=== PATIENT | female | born 1930 | race Caucasian/White ===

== ENCOUNTER 2018-06-24 12:05 | Inpatient (IN) | payer MEDICARE, BC ==
[~2018-06-24] VITALS: Ht 152.4 cm; Wt 61.2 kg
[2018-06-24] VITALS (14 sets, daily range): BP systolic 96–127; BP diastolic 53–82
[2018-06-24] MEDS ORDERED: ACETAMINOPHEN 650 MG SUPP.RECT RC ONE ×2 (12:15→12:21)
[2018-06-24] MEDS ORDERED: IV NORMAL SALINE 1000 ML BAG IV ONE (12:15)
[2018-06-24] MEDS ORDERED: ACET-2605 PO (12:25)
[2018-06-24] MEDS ORDERED: LOSA50TA39 PO (12:25)
[2018-06-24] MEDS ORDERED: CHOL200074 PO (12:25)
[2018-06-24] MEDS ORDERED: LEVO112T5 PO (12:25)
[2018-06-24] MEDS ORDERED: TRAM50TA2 PO (12:25)
[2018-06-24] MEDS ORDERED: OXYB5TAB PO (12:25)
[2018-06-24] MEDS ORDERED: ACET-2154 PO (12:25)
--- NOTE | 2018-06-24 12:30 | NUR ---
Pt arrived by ambulance via gurney.Pt appears lethargic.Respiration is labored.O2 at 15liters via NRB mask.Afib with RVR on monitor .Rate 170s-182.Seen,examined by .
[2018-06-24 12:35] LABS: *BILIRUBIN,URIN 1+ (NEGATIVE); *BLOOD, URINE 2+ (NEGATIVE); *CLARITY,URINE CLOUDY (CLEAR); *COLOR,URINE YELLOW (YELLOW); *KETONES,URINE 1+ (NEGATIVE); *UROBILINOGEN,URINE 0.2 E.U./dl (NORMAL); LEUKOCYTE ESTERASE ,URINE 2+ (NEGATIVE); NITRITE, URINE POSITIVE (NEGATIVE); PH,URINE 5.5 (5.0-8.0); UGLUCOSE NEGATIVE (NEGATIVE)
[2018-06-24 12:41] LABS: BASOPHILS % (AUTO) 0.1 % (0.0-2.0); HEMATOCRIT 42.5 % (31.2-41.9); HEMOGLOBIN 14.1 g/dL (10.9-14.3); LYMPHOCYTES # (AUTO) 0.6 K/uL (20.0-40.0); LYMPHOCYTES % (AUTO) 7.2 % (20.5-51.5); MEAN CORPUSCULAR HEMOGLOBIN 31.9 uug (24.7-32.8); MEAN CORPUSCULAR HGB CONC 33 g/dL (32.3-35.6); MEAN CORPUSCULAR VOLUME 96.1 fL (75.5-95.3); MONOCYTES # (AUTO) 0.4 K/uL (2.0-10.0); MONOCYTES % (AUTO) 4.7 % (0.0-11.0); NEUTROPHILS # (AUTO) 7.2 K/uL (1.8-8.9); PLATELET COUNT (AUTO) 189 K/uL (179-408); RED BLOOD CELL COUNT(AUTO) 4.42 MIL/uL (3.63-4.92); WHITE BLOOD COUNT (AUTO) 8.2 K/uL (3.8-11.8)
[2018-06-24] MEDS ORDERED: DILTIAZEM HCL 25 MG IV ONE (12:42)
[2018-06-24 12:44] LABS: CARBON DIOXIDE 19 mmol/L (21-32); CHLORIDE 112 mmol/L (98-107); CREATININE 1.5 mg/dL (0.6-1.3); GLUCOSE 150 mg/dL (74-106); POTASSIUM 3.6 mmol/L (3.5-5.1); UREA NITROGEN, BLOOD 54 mg/dL (7-18)
[2018-06-24] MEDS ORDERED: DILTIAZEM HCL IV 125 MG in IV DEXTROSE 5% 100 ML IV ONE (12:45)
[2018-06-24] MEDS ORDERED: DILTIAZEM HCL 25 MG IV IV ONE (12:45)
--- NOTE | 2018-06-24 12:50 | NUR ---
Cardizem 20 mg IVP given to pt per md order.Remains in Afib.
[2018-06-24 12:51] LABS: SQUAMOUS EPITHELIAL CELL,UR FEW /HPF (NONE SEEN)
[2018-06-24 12:52] LABS: BACTERIA,URINE MODERATE /HPF (NONE SEEN); URINE AMORPHOUS URATE MODERATE /HPF
[2018-06-24] MEDS ORDERED: VANCOMYCIN IV 1,000 MG in IV DEXTROSE 5% 250 ML IV ONE (13:00)
--- NOTE | 2018-06-24 13:00 | NUR ---
Cardized gtt started per protocol.
[2018-06-24 13:01] LABS: ALANINE AMINOTRANSFERASE 6 U/L (14-59); ALKALINE PHOSPHATASE 61 U/L (50-136); ASPARTATE AMINOTRANSFERASE 12 U/L (15-37); BILIRUBIN,DIRECT 0.4 mg/dL (0.0-0.2); BILIRUBIN,TOTAL 1.2 mg/dL (0.2-1.0); TOTAL PROTEIN, SERUM 6.8 g/dL (6.4-8.2)
[2018-06-24] MEDS ORDERED: FUROSEMIDE 20 MG/2 ML VIAL IV ONE (13:30)
[2018-06-24] MEDS ORDERED: FUROSEMIDE 20 MG/2 ML VIAL ONE (13:53)
--- NOTE | 2018-06-24 14:45 | NUR ---
ADMIT AN 87YO LADY FROM ER VIA GURNY WITH FEVER AND AFIB WITH RVR IN THE 120B/MIN. PT IS LETHARGIC AND SOMNOLENT, OPENS EYES TO CALL, BUR NON VERBAL. CARDIZEM DRIP RUNNING AT 10MG/HR OR 10ML/HR INFUSING WELL ON THE LEFT FA G20. COLOR IS GOOD AND SKIN IS WARM TO TOUCH. O2 4L BY MASK, [id number] IS 97%. LUNGS ARE DIMINISHED ALL OVER. TEMP IS 99.5 RECTALLY.
[2018-06-24] MEDS ORDERED: DILTIAZEM HCL IV 125 MG in IV DEXTROSE 5% 100 ML IV PRN ×4 (15:15)
--- NOTE | 2018-06-24 15:30 | NUR ---
SON AND DAUGHTER IN LAW AT THE BEDSIDE. SEEN AND EXAMINED BY DR MENG WITH NEW ORDERS.
[2018-06-24] MEDS ORDERED: MAGNESIUM HYDROXIDE 30 ML LIQUID UDC PO PRN (15:45)
[2018-06-24] MEDS ORDERED: ONDANSETRON 4 MG/2 ML VIAL IV PRN (15:45)
[2018-06-24] MEDS ORDERED: ACETAMINOPHEN 325 MG TABLET PO PRN (15:45)
[2018-06-24] MEDS ORDERED: BUMETANIDE INJ 4 MG in IV DEXTROSE 5% 24 ML IV ONE (16:00)
[2018-06-24] MEDS ORDERED: DIGOXIN 500 MCG/2 ML AMP IV SCH (16:00)
[2018-06-24] MEDS ORDERED: AMIODARONE HCL IV 150 MG in IV DEXTROSE 5% 100 ML IV ONE (16:45)
[2018-06-24] MEDS ORDERED: MEROPENEM 0.5 G in IV NORMAL SALINE 50 ML IV SCH (16:45)
[2018-06-24] MEDS ORDERED: IV 1/2NS 1000 ML 1,000 ML IV ONE (17:30)
[2018-06-24] MEDS: AMIODARONE HCL IV 900 MG in IV DEXTROSE 5% 482 ML IV PRN (17:30)
--- NOTE | 2018-06-24 17:30 | NUR ---
CARDIZEM IS D/CD. AND AMIODARONE 150MG IV BOLUS GIVEN ORDERED AND FOLLOWED BY AMIODARONE DRIP AT 1MG /HR OR 33.33ML/HR ORDERED.
--- NOTE | 2018-06-24 18:00 | NUR ---
MIDLINE IV ACCESS INSERTED BY SRINIVASA CARDOSO ON THE LEFT UPPER ARM G18.
--- NOTE | 2018-06-24 18:11 | NUR ---
PHARMACY CLINICAL NOTES ( VANCOMYCIN DOSING) S: 87 yo female with DX of sepsis due to UTI & PNA. treating with merrem and Vancomycin empirically. O: BUN/SCR 54/1.5, WBC 8.2, TEMP 102, DOSING WT 97 LBS A/P: Pt recieved Vancomycin 1 gm in ER @ 13:30. Due to advanced age and compromised renal fxn will dose Vanco by fall of level. Per calculation dose of 1gm q56h would yeild a peak of 49 and trough of 17. plan to order level on 06/26 ~ 1300(48hr post 1st dose) . Will monitor renal fxn and levels and adjust dose as necessary
[2018-06-24] MEDS: MEROPENEM 0.5 G in IV NORMAL SALINE 50 ML IV SCH (18:36)
--- NOTE | 2018-06-24 20:00 | NUR ---
Drowsy, readily opens eyes to voice and tactile stimuli. Very few incomprehensible words. Does not follow commands; has generalized body weakness. Monitor remains AFib/AFlutter with rate better controlled. Amiodarone drip in progress per protocol. Resp regular at rate 30's/min but does not appear in distress. O2 face mask 5L/min in use. Pt is a mouth breather; frequent oral care done. HOB up at all times. Aspiration precautions observed. Nursing comfort measures maintained at all times. Please see CCU flowsheet for full assessment and clinical data.
--- NOTE | 2018-06-24 21:00 | NUR ---
Attempted to give HS med with very little water. Noted to drool water out from mouth; will keep NPO including meds.
[2018-06-24] MEDS: OXYBUTYNIN XL 5 MG TABSR PO SCH (21:12)
[2018-06-25] VITALS (36 sets, daily range): BP systolic 96–127; BP diastolic 53–78
[2018-06-25 04:43] LABS: BASOPHILS % (AUTO) 0.1 % (0.0-2.0); HEMATOCRIT 40.9 % (31.2-41.9); HEMOGLOBIN 13.7 g/dL (10.9-14.3); LYMPHOCYTES # (AUTO) 0.2 K/uL (20.0-40.0); LYMPHOCYTES % (AUTO) 1.6 % (20.5-51.5); MEAN CORPUSCULAR HEMOGLOBIN 31.7 uug (24.7-32.8); MEAN CORPUSCULAR HGB CONC 33 g/dL (32.3-35.6); MEAN CORPUSCULAR VOLUME 94.7 fL (75.5-95.3); MONOCYTES # (AUTO) 0.2 K/uL (2.0-10.0); MONOCYTES % (AUTO) 1.7 % (0.0-11.0); NEUTROPHILS # (AUTO) 9.6 K/uL (1.8-8.9); NEUTROPHILS % (AUTO) 96.6 % (38.5-71.5); PLATELET COUNT (AUTO) 159 K/uL (179-408); RED BLOOD CELL COUNT(AUTO) 4.32 MIL/uL (3.63-4.92); WHITE BLOOD COUNT (AUTO) 9.9 K/uL (3.8-11.8)
[2018-06-25 04:59] LABS: CARBON DIOXIDE 23 mmol/L (21-32); CHLORIDE 109 mmol/L (98-107); CHOLESTEROL 110 mg/dL (<200); CREATININE 1.6 mg/dL (0.6-1.3); GLUCOSE 180 mg/dL (74-106); HDL CHOLESTEROL 49 mg/dL (40-60); MAGNESIUM 1.8 mg/dL (1.8-2.4); PHOSPHOROUS 2.3 mg/dL (2.5-4.9); POTASSIUM 3.6 mmol/L (3.5-5.1); TRIGLYCERIDES 93 MG/DL (30-150); UREA NITROGEN, BLOOD 55 mg/dL (7-18)
[2018-06-25 05:55] LABS: BAND % (MANUAL) 51 % (0-10); LYMPHOCYTES % (MANUAL) 1 % (20-40); MYELOCYTES % 1 % (0-0); NEUTROPHILS % (MANUAL) 47 % (42-75)
--- NOTE | 2018-06-25 06:00 | NUR ---
Fairly tolerated well AM care procedures. Stable night. Remains Af/AF with rate below 100/min. Please see CCU flowsheet for trends and clinical data.
[2018-06-25] MEDS: MEROPENEM 0.5 G in IV NORMAL SALINE 50 ML IV SCH ×2 (06:46→18:20)
[2018-06-25] MEDS: Z GUARD REMEDY PASTE 57 GM TUBE TOP PRN (06:47)
--- NOTE | 2018-06-25 07:30 | NUR ---
RECIEVED PT LYING IN BED, LETHARGIC, OPENS EYES TO NAME AND ABLE TO SQUEEZE MY HAND LIGHTLY. HR IS STILL ON ATRIAL FIBRILLATION BETWEEN 96-120B/MIN.
--- NOTE | 2018-06-25 07:40 | NUR ---
NOTED THAT LEFT BREAST AUGMENTATION IS VERY HARD TO TOUCH. IS AWARE. ALSO NOTIFIED SRINIVASA CPR INSTRUCTOR THAT PT'S TOES ARE PURPLISH. BUT HAS WEAK PULSES NOTED. NO ORDERS NOTED.
--- NOTE | 2018-06-25 08:00 | NUR ---
SNTHROID PO NOT GIVEN. PT IS VERY LETHARGIC AND UNABLE TO SWALLOW. RESPIATION IS LABORED AND SHALLOW. MD IS AWARE. PT IS ON O2 MASK AT 6L , SATURATING AT 97-100%. HOB UP 35DEGREES. LUNGS ARE DIMINISHED BILATERALLY. IVF 1/2 NS AT 75ML/HR INFUSING WELL RIGHT UPPER ARM. AMIODARONE DRIP IN PROGRESS AT 0.5MG/MIN INFUSING WELL. HR STILL ON AFIB BETWEEN 96-118B/MIN.VSS.
[2018-06-25] MEDS ORDERED: LOSARTAN POTASSIUM 50 MG TABLET PO SCH (09:00)
[2018-06-25] MEDS ORDERED: ACETAMINOPHEN 650 MG SUPP.RECT RC PRN (09:00)
[2018-06-25] MEDS ORDERED: NEUTRA PHOS PACKET PO ONE (09:15)
--- NOTE | 2018-06-25 09:54 | NUR ---
PT MEDICATED WITH TYLENOL 650MG AK FOR TEMP OF 100F ORDERED.
--- NOTE | 2018-06-25 10:08 | NUR ---
TF Recommendation: Recommend advance to hypocaloric, high-calorie tube feeding per cardiac care septic status. TF recommendations: Osmolite 1.2 40mL/hr x 20hrs provides 800 mL solution, 960 kcal, 44.4 g pro, 645 mL fluid Prostat BID provides 200 kcal, 30 g pro. Total at goal rate: 1160 kcal, 74 g pro, 645 mL fluid. This meets 100% of calorie range and 100% of protein range. - 150 mL water flushes q8hr, or per MD based on renal sufficiency. - Initiate at 10mL/hr, advance to goal rate as tolerated qhr. Addendum: 06/25/18 at [address] Amended: Links added.
[2018-06-25] MEDS ORDERED: IV D5 1/2 NS 1000 ML 1,000 ML IV SCH (10:15)
--- NOTE | 2018-06-25 10:15 | NUR ---
SEEN AND EXAMINED BY DR ANDREW NIEVES WITH NEW ORDERS AND DR ALEM REGALADO.
--- NOTE | 2018-06-25 10:30 | NUR ---
ABG DONE ORDERED AND RESULT INFORMED TO DR ANDREW NIEVES WITH NO ORDERS.
[2018-06-25 10:34] LABS: ABG BASE EXCESS -6.5 mmol/L; ABG HCO3 19.2 mmol/L; ABG PH 7.311 (7.350-7.450); ABG PO2 104.7 mmHg (75.0-100.0); ABG SITE LEFT RADIAL; ABG TOTAL HEMOGLOBIN 13.5 G/dL (12.0-16.0); COHb 1.4 % (0.5-1.5); MetHb 0.1 % (0.0-1.5); O2Hb 96.4 % (94.0-97.0); VENT MODE Mask - Simple 6L
--- NOTE | 2018-06-25 10:35 | NUR ---
SEEN AND EXAMINED BY DR MENG WITH NEW ORDERS.
--- NOTE | 2018-06-25 10:45 | NUR ---
NGT INSERTED LEFT NARES FR 16 ORDERED. PLACEMENT CHECKED BY AUSCULTATION AND CONFIRMATION BY PCXR. AWAITING FOR RESULT.
[2018-06-25] MEDS: OSMOLITE 1.2 CAL 1,000 ML LIQUID GT PRN (12:00)
[2018-06-25] MEDS: LEVOTHYROXINE SODIUM 112 MCG TABLET PO SCH (12:02)
[2018-06-25] MEDS: IV 1/2NS 1000 ML 1,000 ML IV SCH (12:03)
--- NOTE | 2018-06-25 12:04 | NUR ---
PHARMACY CLINICAL NOTES ( VANCOMYCIN DOSING) S: 87 yo female with DX of sepsis due to UTI & PNA. treating with merrem and Vancomycin empirically. O: BUN/SCR 55/1.6, WBC 9.9, TEMP 100, DOSING WT 97 LBS A/P: Pt recieved Vancomycin 1 gm in ER @ 13:30 yesterday . Due to advanced age and compromised renal fxn will dose Vanco by fall of level. Vancomycin random is on order today at 1500. Will follow the level for further dosing. Addendum: 06/25/[address] MUÑOZ ADM VANCOMYCIN RANDOM TODAY AT 1500:11.6 WILL GIVE 1 GRAM X1 AT 1600 AND DRAW RANDOM AGAIN TOMORROW AT 1500. IF SCR IS STABLE, WILL CONSIDER ROUTINE DOSING.
[2018-06-25] MEDS: ENOXAPARIN SODIUM 60 MG/0.6 ML DISP.SYRIN SQ SCH (12:06)
--- NOTE | 2018-06-25 14:45 | NUR ---
SUCTIONED SECRETIONS ORALLY AND NASALLY AND OBTAINED LARGE AMOUNT OF THICK YELLOW SECRETIONS.
--- NOTE | 2018-06-25 15:00 | NUR ---
DR AVALOS WANTED TO CONTINUE AMIODARONE DRIP AT 0.5MG FOR ANOTHER 24 HOURS. PHARMACIST NOTIFIED AND AWARE.
[2018-06-25] MEDS: AMIODARONE HCL IV 900 MG in IV DEXTROSE 5% 482 ML IV PRN (15:36)
[2018-06-25] MEDS ORDERED: VANCOMYCIN IV 1 G in PREMIXED 0 EACH IV ONE (16:00)
[2018-06-25 16:18] LABS: *CREATININE,URINE 125.2 mg/dL (30-125)
--- NOTE | 2018-06-25 17:00 | NUR ---
CONDITION IS UNCHANGED. PT OPENS EYES AND TRYS TO TALK BUT UNCLEAR. BUT MOSTLY SLEEPING AND DROWSY. PM CARE RENDERED AND ORAL CARE RENDERED FREQUENTLY.
--- NOTE | 2018-06-25 20:00 | NUR ---
Resting in bed, lethargic but readily opens eyes to tactile and voice stimuli; able to track. No verbalizations. Has generalized body weakness. Resp. deep but does not appear in distress. O2 6L/min simple mask with excellent sats. Suctioned PRN to minimal secretions. Remains AFib rate 90's-low 100's. Amiodarone drip in progress 0.5 mg/min. Tube feeding well tolerated, rate increased with goal 40 ml/hr. Aspiration precautions observed at all times. Turned/repositioned q 2hr and PRN. Has bony prominences; pt on first step mattress. Nursing comfort measures maintained. Please see CCU flowsheet for full assessment and clinical data.
[2018-06-25] MEDS: OXYBUTYNIN XL 5 MG TABSR PO SCH (20:27)
--- NOTE | 2018-06-25 21:00 | NUR ---
Bilateral feet purplish but still with palpable weak pulses; medical team is aware per day RN. Will continue to observe. Son called in for condition update. Very appreciative of care.
[2018-06-26] VITALS (80 sets, daily range): BP systolic 67–188; BP diastolic 34–126
[2018-06-26] MEDS: IV 1/2NS 1000 ML 1,000 ML IV SCH ×2 (02:05→15:04)
[2018-06-26 05:02] LABS: BASOPHILS % (AUTO) 0.1 % (0.0-2.0); EOSINOPHILS % (AUTO) 0.1 % (0.0-7.0); HEMATOCRIT 40.1 % (31.2-41.9); HEMOGLOBIN 13.1 g/dL (10.9-14.3); LYMPHOCYTES # (AUTO) 0.4 K/uL (20.0-40.0); LYMPHOCYTES % (AUTO) 3.1 % (20.5-51.5); MEAN CORPUSCULAR HEMOGLOBIN 31.4 uug (24.7-32.8); MEAN CORPUSCULAR HGB CONC 33 g/dL (32.3-35.6); MEAN CORPUSCULAR VOLUME 95.9 fL (75.5-95.3); MONOCYTES # (AUTO) 0.4 K/uL (2.0-10.0); MONOCYTES % (AUTO) 2.9 % (0.0-11.0); NEUTROPHILS # (AUTO) 12.8 K/uL (1.8-8.9); NEUTROPHILS % (AUTO) 93.8 % (38.5-71.5); PLATELET COUNT (AUTO) 150 K/uL (179-408); RED BLOOD CELL COUNT(AUTO) 4.18 MIL/uL (3.63-4.92); WHITE BLOOD COUNT (AUTO) 13.6 K/uL (3.8-11.8)
[2018-06-26 05:10] LABS: CARBON DIOXIDE 23 mmol/L (21-32); CHLORIDE 108 mmol/L (98-107); CREATININE 1.8 mg/dL (0.6-1.3); GLUCOSE 183 mg/dL (74-106); PHOSPHOROUS 3.4 mg/dL (2.5-4.9); POTASSIUM 3.9 mmol/L (3.5-5.1); UREA NITROGEN, BLOOD 64 mg/dL (7-18)
[2018-06-26] MEDS: MEROPENEM 0.5 G in IV NORMAL SALINE 50 ML IV SCH ×2 (05:54→18:08)
[2018-06-26] MEDS: LEVOTHYROXINE SODIUM 112 MCG TABLET PO SCH (06:25)
[2018-06-26] MEDS: Z GUARD REMEDY PASTE 57 GM TUBE TOP PRN (06:25)
--- NOTE | 2018-06-26 06:40 | NUR ---
Noted BP hovering in the 80's systolic but with MAP 58-65. Appears not readily arousable as before. Pt has low reserves with positioning in bed no matter how gentle. Dr. Krishna notified and received orders.
[2018-06-26] MEDS ORDERED: IV NORMAL SALINE 250 ML IV ONE ×5 (07:00→17:00)
[2018-06-26] MEDS: NOREPINEPHRINE BITARTRATE 16 MG in IV DEXTROSE 5% 500 ML IV PRN (08:17)
[2018-06-26] MEDS: ENOXAPARIN SODIUM 60 MG/0.6 ML DISP.SYRIN SQ SCH (08:46)
--- NOTE | 2018-06-26 11:15 | NUR ---
seen by sherri new orders recieved and placed in computer.
--- NOTE | 2018-06-26 14:00 | NUR ---
hold tube feeding until she stablizes.
--- NOTE | 2018-06-26 14:10 | NUR ---
stat abg. informed sherri that patient bp is dropping patients breathing becoming shallow agonal. patient still saturating 97% and has become obtundant. son at bedside possibly wants to change code status will wait to speak with time janice.
--- NOTE | 2018-06-26 14:30 | NUR ---
intubating patient by sherri perez at bedside and central line being placed
--- NOTE | 2018-06-26 14:50 | NUR ---
RECEIVED PT ON SIMPLE MASK 6 LPM[address] ABG DRAWN BY DR. RADHA MORALES ON RIGHT FEMORAL, NO COMPLICATIONS NOTED. ABG RESULTS REPORTED TO RADHA MORALES WITH CRITICAL VALUES. DR. RADHA MORALES INTUBATED PT WITH ETT 7.5 SECURED AT 22 CM LIP LINE VIA ANCHOR FAST. ETCO2 WITH GOOD COLOR CHANGED. BS EQUAL BILAT. PLACED ON VENT AC 22 VT 450 FIO2 60%. CXR CONFIRMED WITH GOOD ETT PLACEMENT. ABG DRAWN POST INTUBATION RESULTS REPORTED TO RADHA MORALES. SPUTUM SPECIMEN COLLECTED AND ENDORSED TO RALPH ELLIS.VENT ALARMS WORKING WELL AND AUDIBLE. AMBU BAG AT BEDSIDE. WILL CONTINUE TO MONITOR.
[2018-06-26] MEDS ORDERED: PROPOFOL 100 ML ONE (14:59)
--- NOTE | 2018-06-26 15:00 | NUR ---
patient intubated with vent setting obtained from sherri janice ac 22 tv 450 fio2 60% abg in 30 min.
[2018-06-26 15:04] LABS: ABG BASE EXCESS -13.5 mmol/L; ABG HCO3 23.9 mmol/L; ABG PCO2 155.4 mmHg (35.0-45.0); ABG PH 6.804 (7.350-7.450); ABG PO2 113.9 mmHg (75.0-100.0); ABG SITE RIGHT FEMORAL; ABG TOTAL HEMOGLOBIN 12.8 G/dL (12.0-16.0); COHb 1.2 % (0.5-1.5); MetHb 0.4 % (0.0-1.5); O2Hb 94.7 % (94.0-97.0)
[2018-06-26] MEDS: PROPOFOL 100 ML IV PRN (15:06)
[2018-06-26 15:10] LABS: ABG BASE EXCESS -10.4 mmol/L; ABG HCO3 17.6 mmol/L; ABG PCO2 46.8 mmHg (35.0-45.0); ABG PH 7.193 (7.350-7.450); ABG PO2 159.8 mmHg (75.0-100.0); ABG SITE RIGHT FEMORAL; ABG TOTAL HEMOGLOBIN 13.6 G/dL (12.0-16.0); COHb 1.2 % (0.5-1.5); MetHb 0.2 % (0.0-1.5); VENT MODE VENT - A/C; VT, ABG 450 mL
--- NOTE | 2018-06-26 16:22 | NUR ---
PHARMACY CLINICAL NOTES ( VANCOMYCIN DOSING) S: Vanco dosing to continue for 87 yo female with DX of sepsis due to UTI & PNA empirically. O: BUN/SCR 64/1.8, WBC 13.6, TEMP 97.9 Vanco random level: 19.1 WT 97 LBS A/P: Due to elevated srcr, will continue to dose Vancomycin by random level. Since vanco random level is 19.1 mcg/ml today & srcr has risen, no dose shall be given today. Will order vanco random level with am labs for tomorrow. Will follow the level for further dosing.
[2018-06-26 16:33] LABS: ABG BASE EXCESS -8.5 mmol/L; ABG HCO3 15.2 mmol/L; ABG PCO2 27.2 mmHg (35.0-45.0); ABG PH 7.366 (7.350-7.450); ABG PO2 59.9 mmHg (75.0-100.0); ABG SITE RIGHT BRACHIAL; ABG TOTAL HEMOGLOBIN 13.7 G/dL (12.0-16.0); COHb 1.8 % (0.5-1.5); MetHb 0.1 % (0.0-1.5); O2Hb 91.9 % (94.0-97.0); VENT MODE VENT - A/C; VT, ABG 450 mL
--- NOTE | 2018-06-26 17:15 | NUR ---
doctor nba in the unit. updated patient status. heart rate was controlled in am prior to starting levophed and intubating. patient is stabilizing and titrating down levophed. per doctor nba will keep amiodarone on for rate control will add digoxin for rate control and continue to titrate off levophed if tolerating
[2018-06-26] MEDS ORDERED: DIGOXIN 500 MCG/2 ML AMP IV ONE (18:00)
[2018-06-26] MEDS: AMIODARONE HCL IV 900 MG in IV DEXTROSE 5% 482 ML IV PRN (18:09)
--- NOTE | 2018-06-26 19:14 | NUR ---
RECEIVED PATIENT ORALLY INTUBATED ON A MECHANICAL VENTILATOR. PATIENT IS ON THE FOLLOWING SETTINGS: AC 22, VT 450, FiO2 80%. PATIENT IS INTUBATED WITH SIZE 7.5 ET TUBE AND IT IS SECURED AT APPROX 22 CM AT THE LIP. HME CHANGED. SUCTIONED A MODERATE AMOUNT OF YELLOW AND BLOOD TINGED SECRETIONS. AMBU BAG IS BY BEDSIDE. VENTILATOR ALARMS CHECKED AND THEY ARE ON AND AUDIBLE. WILL CONTINUE TO MONITOR PATIENT.
[2018-06-26] MEDS: OXYBUTYNIN XL 5 MG TABSR PO SCH (21:37)
--- NOTE | 2018-06-26 23:46 | NUR ---
Decreased FiO2 75% with SaO2 99%.
[2018-06-27] VITALS (96 sets, daily range): BP systolic 65–131; BP diastolic 46–90
--- NOTE | 2018-06-27 01:30 | NUR ---
Decreased FiO2 70% with SaO2 99%.
[2018-06-27] MEDS: IV 1/2NS 1000 ML 1,000 ML IV SCH (03:16)
--- NOTE | 2018-06-27 03:26 | NUR ---
Decreased FiO2 65% with SaO2 99%.
[2018-06-27 05:21] LABS: CARBON DIOXIDE 17 mmol/L (21-32); CHLORIDE 105 mmol/L (98-107); CREATININE 1.8 mg/dL (0.6-1.3); GLUCOSE 149 mg/dL (74-106); MAGNESIUM 1.9 mg/dL (1.8-2.4); PHOSPHOROUS 2.4 mg/dL (2.5-4.9); UREA NITROGEN, BLOOD 68 mg/dL (7-18); VANCOMYCIN,RANDOM 17.8 ug/mL (18.0-26.0)
[2018-06-27 05:31] LABS: BASOPHILS % (AUTO) 0.1 % (0.0-2.0); EOSINOPHILS % (AUTO) 0.2 % (0.0-7.0); HEMATOCRIT 41.4 % (31.2-41.9); HEMOGLOBIN 13.8 g/dL (10.9-14.3); LYMPHOCYTES # (AUTO) 0.3 K/uL (20.0-40.0); MEAN CORPUSCULAR HEMOGLOBIN 31.3 uug (24.7-32.8); MEAN CORPUSCULAR HGB CONC 33 g/dL (32.3-35.6); MEAN CORPUSCULAR VOLUME 94.1 fL (75.5-95.3); MONOCYTES # (AUTO) 0.4 K/uL (2.0-10.0); MONOCYTES % (AUTO) 2.3 % (0.0-11.0); NEUTROPHILS # (AUTO) 14.7 K/uL (1.8-8.9); NEUTROPHILS % (AUTO) 95.4 % (38.5-71.5); PLATELET COUNT (AUTO) 152 K/uL (179-408); WHITE BLOOD COUNT (AUTO) 15.5 K/uL (3.8-11.8)
[2018-06-27] MEDS: MEROPENEM 0.5 G in IV NORMAL SALINE 50 ML IV SCH ×2 (06:20→17:33)
[2018-06-27] MEDS: LEVOTHYROXINE SODIUM 112 MCG TABLET PO SCH (06:20)
--- NOTE | 2018-06-27 07:10 | NUR ---
RECEIVED PATIENT ORALLY INTUBATED ON A MECHANICAL VENTILATOR. PATIENT IS ON THE FOLLOWING SETTINGS: AC 22, VT 450, FiO2 65%. PATIENT IS INTUBATED WITH SIZE 7.5 ET TUBE AND IT IS SECURED AT APPROX 22 CM AT THE LIP. HME CHANGE PRN. SUCTIONED SMALL AMOUNT OF CLEAR YELLOW SECRETIONS. AMBU BAG IS BY BEDSIDE. VENTILATOR ALARMS CHECKED AND THEY ARE ON AND AUDIBLE. WILL CONTINUE TO MONITOR PATIENT.
--- NOTE | 2018-06-27 07:51 | NUR ---
PHARMACY CLINICAL NOTES ( VANCOMYCIN DOSING) S: Vanco dosing to continue for 87 yo female with DX of sepsis due to UTI & PNA empirically. O: BUN/SCR 68/1.8, WBC 15.5 TEMP 97.7 Vanco random level today at 0440:17.8 WT 97 LBS A/P: Due to elevated srcr, will continue to dose Vancomycin by random level. Since vanco random level is 17.8,1 gram iv x1 will be given today(scheduled for 9am). Will decide next Vancomycin random level after reviewing am labs tomorrow. Will follow daily.
--- NOTE | 2018-06-27 08:30 | NUR ---
NURYS MGMT CONSULTANT AT BEDSIDE ROUNDING ON PATIENT. ABG RESULTS REFERRED TO PULMO THAT HAS BEEN ALREADY CONSULTED BY HER. ORDERED TO INCREASE IVF TO 100MLS/HR.
[2018-06-27] MEDS: NOREPINEPHRINE BITARTRATE 16 MG in IV DEXTROSE 5% 500 ML IV PRN ×2 (08:41→20:44)
[2018-06-27] MEDS: ENOXAPARIN SODIUM 60 MG/0.6 ML DISP.SYRIN SQ SCH (08:47)
[2018-06-27] MEDS ORDERED: VANCOMYCIN IV 1 G in PREMIXED 0 EACH IV ONE (09:00)
[2018-06-27 09:02] LABS: ABG BASE EXCESS -8.4 mmol/L; ABG HCO3 13.2 mmol/L; ABG PCO2 19.9 mmHg (35.0-45.0); ABG PH 7.441 (7.350-7.450); ABG PO2 77.3 mmHg (75.0-100.0); ABG SITE LEFT RADIAL; ABG TOTAL HEMOGLOBIN 14.1 G/dL (12.0-16.0); COHb 1.7 % (0.5-1.5); MetHb 0.1 % (0.0-1.5); O2Hb 94.5 % (94.0-97.0); VENT MODE VENT - A/C; VT, ABG 450 mL
--- NOTE | 2018-06-27 11:00 | NUR ---
DOCTOR MCCOLLUM HERE FOR NEW CONSULT AT BEDSIDE. NEW ORDERS RECEIVED. ORDERED TO GIVE 2AMPS SODIUM BICARB NO OTHER VENT CHANGES WERE ORDERED.
[2018-06-27] MEDS ORDERED: SODIUM BICARBONATE 8.4% 50 MEQ/50 ML DISP.SYRIN IV ONE (11:15)
--- NOTE | 2018-06-27 12:50 | NUR ---
CHIKA WELLER MOTEL FRONT DESK ATTENDANT ID MAKING ROUNDS ON PATIENT. NO NEW ORDERS FOR NOW. PENDING SPUTUM CULTURES. ABX ARE SUFFICIENT AT THIS TIME.
--- NOTE | 2018-06-27 15:06 | NUR ---
PER CECY NUNO MAY RESTART TUBE FEEDS AT 20 MLS/HR CHECK RESIDUALS Q4HR, INCREASE EVERY 4 HRS IF RESIDUALS ARE LESS THAN 300MLS TO GOAL RATE OF 40MLS/HR
[2018-06-27] MEDS ORDERED: NEUTRA PHOS PACKET NG ONE (15:15)
[2018-06-27] MEDS: OSMOLITE 1.2 CAL 1,000 ML LIQUID GT PRN (15:54)
[2018-06-27] MEDS: PROPOFOL 100 ML IV PRN (15:56)
[2018-06-27] MEDS: IV 1/2NS 1000 ML 1,000 ML IV PRN (15:58)
--- NOTE | 2018-06-27 16:37 | NUR ---
DR RICK IN THE UNIT TO SEE PATIENT. WILL PLAN TO DISCONTINUE AMIODARONE IV DRIP AND HAVE DIGOXIN FOR RATE CONTROL AT THIS POINT.
[2018-06-27] MEDS ORDERED: DIGOXIN 500 MCG/2 ML AMP IV ONE (17:30)
[2018-06-27 19:06] LABS: *ANTI-SCLERODERMA-70 AB <0.2 AI (0.0-0.9); *SJOGREN'S ANTI-SS-A <0.2 AI (0.0-0.9); *SJOGREN'S ANTI-SS-B <0.2 AI (0.0-0.9); *SMITH ANTIBODIES <0.2 AI (0.0-0.9); ANTI-DNA(DS) AB, QN 2 IU/mL (0-9)
--- NOTE | 2018-06-27 20:30 | NUR ---
Notified inventory associate of tachycardia in 130's and hypotension. No new orders at this time.
[2018-06-27] MEDS: OXYBUTYNIN XL 5 MG TABSR PO SCH (21:07)
[2018-06-28] VITALS (93 sets, daily range): BP systolic 51–185; BP diastolic 22–74
[2018-06-28] MEDS: IV 1/2NS 1000 ML 1,000 ML IV PRN ×3 (02:48→21:05)
--- NOTE | 2018-06-28 03:04 | NUR ---
PT ON CONT SOTOMAYOR VENT WITH 7.5 ET/TUBE, 22CM LIP LINE, WITH SAME CURRENT VENT SETTINGS, A/C 22, VT 450ML, 65%, PT DOES ASSIST , GOOD COUGH EFFORT, SLIGHT BLOODY TINGE SECRETIONS, ORAL CARE DONE CP 22CM, NO VENT CHANGES MADE AT THIS TIME, ALL VENT ALARMS GOOD, ANCHOR FAST REPOSITION, CHANGE HME CHECK CUFF, AMBU BAG AT BEDSIDE.Markie MIRAMONTESP Addendum: 06/28/18 at 0307 by ALLAN MARIE RT Amended: Links added.
[2018-06-28] MEDS: PROPOFOL 100 ML IV PRN ×2 (04:25→16:02)
[2018-06-28 05:19] LABS: BASOPHILS % (AUTO) 0.2 % (0.0-2.0); EOSINOPHILS % (AUTO) 0.2 % (0.0-7.0); HEMATOCRIT 36.4 % (31.2-41.9); HEMOGLOBIN 12.3 g/dL (10.9-14.3); LYMPHOCYTES # (AUTO) 0.3 K/uL (20.0-40.0); LYMPHOCYTES % (AUTO) 2.1 % (20.5-51.5); MEAN CORPUSCULAR HEMOGLOBIN 31.4 uug (24.7-32.8); MEAN CORPUSCULAR HGB CONC 34 g/dL (32.3-35.6); MEAN CORPUSCULAR VOLUME 92.9 fL (75.5-95.3); MONOCYTES # (AUTO) 0.3 K/uL (2.0-10.0); MONOCYTES % (AUTO) 1.8 % (0.0-11.0); NEUTROPHILS # (AUTO) 15.3 K/uL (1.8-8.9); NEUTROPHILS % (AUTO) 95.7 % (38.5-71.5); PLATELET COUNT (AUTO) 136 K/uL (179-408); RED BLOOD CELL COUNT(AUTO) 3.92 MIL/uL (3.63-4.92)
[2018-06-28 05:46] LABS: CARBON DIOXIDE 20 mmol/L (21-32); CHLORIDE 104 mmol/L (98-107); CREATININE 1.6 mg/dL (0.6-1.3); GLUCOSE 192 mg/dL (74-106); MAGNESIUM 1.8 mg/dL (1.8-2.4); PHOSPHOROUS 1.9 mg/dL (2.5-4.9); POTASSIUM 3.6 mmol/L (3.5-5.1); UREA NITROGEN, BLOOD 61 mg/dL (7-18)
[2018-06-28 06:13] LABS: BAND % (MANUAL) 4 % (0-10); LYMPHOCYTES % (MANUAL) 1 % (20-40); MONOCYTES % (MANUAL) 6 % (2-10); NEUTROPHILS % (MANUAL) 89 % (42-75)
[2018-06-28] MEDS: MEROPENEM 0.5 G in IV NORMAL SALINE 50 ML IV SCH ×2 (06:17→17:31)
[2018-06-28] MEDS: LEVOTHYROXINE SODIUM 112 MCG TABLET PO SCH (06:37)
--- NOTE | 2018-06-28 07:10 | NUR ---
Received report pt. on ventilator, A/C 22, 450tv. and 65% Fio2. pt. on propofol for sedation pt. responsive to touch withdrawing from touch, bitting, ETT. propofol titrated for adequate sedation following protocol. Levophed titrated down.
[2018-06-28] MEDS: ENOXAPARIN SODIUM 30 MG/0.3 ML DISP.SYRIN SUBCUT SCH (08:12)
--- NOTE | 2018-06-28 08:53 | NUR ---
Nephrology services, Dr. Dunlap in the unit to see and examine pt. report given. See order hx.
[2018-06-28] MEDS ORDERED: ENOXAPARIN SODIUM 60 MG/0.6 ML DISP.SYRIN SQ SCH ×2 (09:00)
[2018-06-28 09:09] LABS: ABG BASE EXCESS -3.1 mmol/L; ABG HCO3 17.6 mmol/L; ABG PCO2 21.8 mmHg (35.0-45.0); ABG PH 7.526 (7.350-7.450); ABG PO2 73.2 mmHg (75.0-100.0); ABG SITE LEFT RADIAL; ABG TOTAL HEMOGLOBIN 13.1 G/dL (12.0-16.0); COHb 1.7 % (0.5-1.5); MetHb 0.3 % (0.0-1.5); O2Hb 93.9 % (94.0-97.0); VENT MODE VENT - A/C; VT, ABG 450 mL
[2018-06-28] MEDS ORDERED: CALCIUM GLUCONATE IV 1 GM in IV DEXTROSE 5% 50 ML IV ONE (09:45)
--- NOTE | 2018-06-28 10:15 | NUR ---
Pt seen by attending LABORATORY MANAGERNURYS. Report given. Orders for 1 L NS bolus x1. And increase IVF to 125cc/hr after bolus complete. Will continue to monitor and carry out orders.
[2018-06-28] MEDS: BLOOD SUGAR DIAGNOSTIC 1 EACH STRIP VI SCH ×3 (11:30→21:11)
--- NOTE | 2018-06-28 11:40 | NUR ---
Pt seen by PULMONARY services, VEDA PRICE. Full report given, examined pt. See order history.
[2018-06-28] MEDS ORDERED: IV NS 1000 ML 1,000 ML IV ONE ×2 (11:45→19:00)
--- NOTE | 2018-06-28 13:18 | NUR ---
DECREASED FIO2 TO 55% TO MAINTAIN SPO2 >94%
--- NOTE | 2018-06-28 14:35 | NUR ---
WOUND CARE CONSULT: PT WAS SEEN AT 1100 AT REQUEST OF CCU RN WHEN MEDITECH WAS DOWN. PT NOTED TO HAVE INTACT DEEP TISSUE INJURY TO SACRUM WELL DUSKY COLOR TO FINGERS AND TOES. PERIPHERAL PULSES PALPABLE. RECOMMENDATIONS MADE FOR WOUND CARE AND SKIN PROTECTION. DISCUSSED WITH NURSING STAFF. PT ON FIRST STEP CIRRUS LOW AIRLOSS MATTRESS. WILL SEE PRN.
--- NOTE | 2018-06-28 15:00 | NUR ---
Alex jennings N.P. Infectious Disease in the unit to examine pt. report given. Orders to continue with care plan received.
--- NOTE | 2018-06-28 15:00 | NUR ---
Upon PM care, patient noted to have large rectal dilation with some stool . Upon further examination patient noted to be fully impacted with hardened and stone like stool. Patient assisted to pass her bowels, and she passed an XXXlarge amount of feces. After pt assistance, pt started passing large amounts of loose stool.
[2018-06-28] MEDS ORDERED: NEUTRA PHOS PACKET NG ONE (15:15)
--- NOTE | 2018-06-28 15:20 | NUR ---
Cardiology serviced, Dr. arango in the unit to examine pt. report given, orders to continue with care plan received.
[2018-06-28] MEDS ORDERED: DIGOXIN 500 MCG/2 ML AMP IV ONE (15:30)
--- NOTE | 2018-06-28 15:51 | NUR ---
PHARMACY CLINICAL NOTES ( VANCOMYCIN DOSING) S: Vanco dosing to continue for 87 yo female with DX of sepsis due to UTI & PNA empirically. O: BUN/SCR 61/1.6, WBC 16 TEMP 98.8 Vanco random level on 06/27 at 0440:17.8 Vanco random level on 06/28 with am labs:23.4 WT 97 LBS ht 152.4 cm A/P: Due to elevated srcr, will continue to dose Vancomycin by random level. Since vanco random level is 23.4 mcg/ml, no dose shall be given today. Plan to give vanco 1gm IVPB x1 tomorrow at 0800. Will check next Vancomycin random level on with am labs. Will follow daily.
[2018-06-28] MEDS: INSULIN REGULAR, HUMAN 300 UNIT/3 ML VIAL SQ PRN (16:25)
--- NOTE | 2018-06-28 16:55 | NUR ---
DECREASED FIO2 TO 55% TO MAINTAIN SPO2 >94%
--- NOTE | 2018-06-28 19:30 | NUR ---
Remains intubated on vent. Appears comfortable on current vent settings. Adequately sedated on Diprivan. Monitor AFib with controlled rate. Levophed drip titrating to keep SBP above 90. Tube feedings well tolerated, residuals minimal. Aspiration precautions observed at all times. Turned/positioned q 2hr and PRN. On first step mattress; off loading all extremities with pillows. Nursing comfort measures observed at all times. Please see CCU flowsheet for full assessment and clinical data.
--- NOTE | 2018-06-28 20:00 | NUR ---
Son here for brief visit. Updated with pt condition; very appreciative of care and information.
--- NOTE | 2018-06-28 20:18 | NUR ---
Pt rec'd on Marcano settings AC 22, VT 450, and FIO2-45%. No resp. distress noted. ETT is in place, patent and secure at approx. 22cm and has been repositioned to the Left side of the pt's mouth. BVM at bedside. Pt to be monitored throughout the shift. Oral care done. Marcano alarm parameters have been checked and remain audible.
[2018-06-28] MEDS ORDERED: OXYBUTYNIN XL 5 MG TABSR PO SCH (21:00)
[2018-06-28] MEDS: OXYBUTYNIN CHLORIDE 5 MG TABLET NG SCH (21:02)
[2018-06-28] MEDS: OSMOLITE 1.2 CAL 1,000 ML LIQUID GT PRN (21:30)
[2018-06-28] MEDS: NOREPINEPHRINE BITARTRATE 16 MG in IV DEXTROSE 5% 500 ML IV PRN (23:58)
[2018-06-29] VITALS (95 sets, daily range): BP systolic 72–166; BP diastolic 39–78
[2018-06-29] MEDS: IV 1/2NS 1000 ML 1,000 ML IV PRN ×2 (05:24→16:31)
[2018-06-29] MEDS: Z GUARD REMEDY PASTE 57 GM TUBE TOP PRN (05:25)
[2018-06-29 05:29] LABS: BASOPHILS % (AUTO) 0.1 % (0.0-2.0); CARBON DIOXIDE 22 mmol/L (21-32); CHLORIDE 107 mmol/L (98-107); CREATININE 1.2 mg/dL (0.6-1.3); EOSINOPHILS # (AUTO) 0.1 K/uL (0.0-0.7); EOSINOPHILS % (AUTO) 0.8 % (0.0-7.0); GLUCOSE 158 mg/dL (74-106); HEMATOCRIT 35.8 % (31.2-41.9); LYMPHOCYTES # (AUTO) 0.5 K/uL (20.0-40.0); LYMPHOCYTES % (AUTO) 3.4 % (20.5-51.5); MAGNESIUM 1.6 mg/dL (1.8-2.4); MEAN CORPUSCULAR HEMOGLOBIN 31.2 uug (24.7-32.8); MEAN CORPUSCULAR HGB CONC 34 g/dL (32.3-35.6); MEAN CORPUSCULAR VOLUME 92.6 fL (75.5-95.3); MONOCYTES # (AUTO) 0.4 K/uL (2.0-10.0); MONOCYTES % (AUTO) 3.1 % (0.0-11.0); NEUTROPHILS # (AUTO) 13.2 K/uL (1.8-8.9); NEUTROPHILS % (AUTO) 92.6 % (38.5-71.5); PHOSPHOROUS 2.3 mg/dL (2.5-4.9); PLATELET COUNT (AUTO) 131 K/uL (179-408); POTASSIUM 3.6 mmol/L (3.5-5.1); RED BLOOD CELL COUNT(AUTO) 3.86 MIL/uL (3.63-4.92); UREA NITROGEN, BLOOD 51 mg/dL (7-18); WHITE BLOOD COUNT (AUTO) 14.2 K/uL (3.8-11.8)
[2018-06-29] MEDS: PROPOFOL 100 ML IV PRN (05:31)
[2018-06-29] MEDS: MEROPENEM 0.5 G in IV NORMAL SALINE 50 ML IV SCH (05:49)
--- NOTE | 2018-06-29 06:00 | NUR ---
General condition unchanged. Slowly titrating down Levophed and BP maintaining within MD parameter. Please see CCU flowsheet for trends and clinical data.
[2018-06-29] MEDS: LEVOTHYROXINE SODIUM 112 MCG TABLET PO SCH (06:39)
--- NOTE | 2018-06-29 07:15 | NUR ---
PT RECEIVED ORALLY INTUBATED WITH A SIZE 7.5 ETT SECURED WITH AN ANCHOR-FAST APPROX. 22CM AT THE LIP. PT IS ON CMV ON A SOTOMAYOR VENT ON SETTINGS OF A/C 22, VT 450, AND 45% FIO2. VENT PARAMETERS AND ALARMS CHECKED, ALARMS ARE AUDIBLE. PT IS TOLERATING VENT SETTINGS WELL, NO RESP. DISTRESS NOTED AT THIS TIME. AMBU-BAG AT BEDSIDE. VENT PLUGGED INTO RED OUTLET. SUCTION PRN. WILL CONTINUE TO MONITOR.
[2018-06-29 07:38] LABS: BAND % (MANUAL) 3 % (0-10); EOSINOPHILS % (MANUAL) 2 % (0-8); LYMPHOCYTES % (MANUAL) 2 % (20-40); MONOCYTES % (MANUAL) 4 % (2-10); NEUTROPHILS % (MANUAL) 89 % (42-75)
[2018-06-29] MEDS ORDERED: VANCOMYCIN IV 1 G in PREMIXED 0 EACH IV ONE (08:00)
[2018-06-29] MEDS: BLOOD SUGAR DIAGNOSTIC 1 EACH STRIP VI SCH ×4 (08:01→21:02)
[2018-06-29] MEDS: ENOXAPARIN SODIUM 30 MG/0.3 ML DISP.SYRIN SUBCUT SCH (08:03)
[2018-06-29] MEDS: INSULIN REGULAR, HUMAN 300 UNIT/3 ML VIAL SQ PRN ×2 (08:11→11:05)
--- NOTE | 2018-06-29 08:35 | NUR ---
Pt seen and examined by FOUNDATION DRILL OPERATOR HELPER, CLYDE PRICE. Report given. No new orders. Will continue to monitor. Addendum: 06/29/18 at 0919 by CHIARA LAND RN Orders received, SEE ORDER HISTORY.
[2018-06-29] MEDS ORDERED: NEUTRA PHOS PACKET PO ONE (09:15)
[2018-06-29] MEDS: MAGNESIUM SULFATE/D5W 100 ML IV SCH ×2 (09:36→10:49)
--- NOTE | 2018-06-29 09:45 | NUR ---
PHARMACY CLINICAL NOTES ( VANCOMYCIN DOSING) S: Vanco dosing to continue for 87 yo female with DX of sepsis due to UTI & PNA empirically. O: BUN/SCR 51/1.2, WBC 14.2 TEMP 98 Vanco random level on 06/27 at 0440:17.8 Vanco random level on 06/28 with am labs:23.4 WT 97 LBS ht 152.4 cm A/P: Due to elevated srcr, will continue to dose Vancomycin by random level. A dose of vanco 1gm IVPB x1 given today at at 0800. Will check next Vancomycin random level on 06/30 with am labs. Will follow daily.
--- NOTE | 2018-06-29 10:00 | NUR ---
Osmolite 1.2 NG tube feeding resumed per protocol.
--- NOTE | 2018-06-29 11:35 | NUR ---
Pt seen by pulmonary services, VEDA PRICE. Full report given. Orders to turn off sedation for weaning purposes. If pt tolerates procedure well, place pt on CPAP with PSV of 10. Follow up ABG after 30 - 40 minutes. Will continue with care. Addendum: 06/29/18 at 1207 by CHIARA LAND RN Pt off sedation as ordered for safety precautions. G-tube feeding on hold, HOB 30 degrees. No respiratory distress noted. O2 sat 98% with FiO2 35% as ordered.
--- NOTE | 2018-06-29 11:50 | NUR ---
Pt seen by FACILITIES FLIGHT CHECK PILOT, MERLINE PRICE. Full report given. No new orders, will continue with care.
--- NOTE | 2018-06-29 12:15 | NUR ---
Pt seen by attending SENIOR EMBEDDED SOFTWARE ENGINEERNURYS. Full report given. Order of 1L NS bolus x1. Will continue to monitor.
[2018-06-29] MEDS ORDERED: IV NS 1000 ML 1,000 ML IV ONE (12:30)
--- NOTE | 2018-06-29 13:00 | NUR ---
Levophed off at this time. Pt alert and awake however, unable to follow commands. Pt placed on CPAP mode. Immediately drop in HR of 40 - 45. Pt unable to put in volumes as per RT who remain at bedside. Pt quickly became tachypneic, RR mid 20s to low 30s.
--- NOTE | 2018-06-29 13:00 | NUR ---
PT PLACED ON CPAP, PSV 10 PER MD ORDER. PT IS AWAKE, ALERT BUT UNABLE TO FOLLOW VERBAL COMMANDS. RT AND RN AT BEDSIDE. WILL CONTINUE TO MONITOR.
--- NOTE | 2018-06-29 13:15 | NUR ---
With RT at bedside, DR MCCOLLUM called to be notified of events. Order to stop weaning and resume previous vent settings with no ABG needed. Pt left on AC 22, TV 450, and FiO2 35%. O2 sat of 98%, sinus elizabeth with HR of low 50s. Will continue plan of care.
--- NOTE | 2018-06-29 13:15 | NUR ---
PT PLACED BACK ON PREVIOUS A/C SETTINGS. WHILE ON CPAP, PT BEGAN TO HAVE BRADYCARDIA, MILD TACHYPNEA, AND UNABLE TO PRODUCE ADEQUATE VOLUMES. MD INFORMED VIA PHONE CALL. PT IS TOLERATING A/C SETTINGS WELL, NO RESP. DISTRESS NOTED.
--- NOTE | 2018-06-29 13:30 | NUR ---
Called to bss solution architect MERLINE PRICE to notify changes in cardiac rhythm. Awaiting call back.
--- NOTE | 2018-06-29 13:42 | NUR ---
Called to attending BROADCAST PRODUCERNURYS to notify changes in pt status. Awaiting call back at this time.
--- NOTE | 2018-06-29 13:49 | NUR ---
Received call back from attending LIVESTOCK TRUCKER NURYS. Notified of change in condition during weaning and also notified of pt being back on Levophed. No new orders received. Orders to continue care plan.
--- NOTE | 2018-06-29 13:55 | NUR ---
Received call back from LANGUAGE PATHOLOGIST, MERLINE PRICE. Notified of change in condition during weaning process and pt back on Levophed. No new orders received. Will continue to monitor.
[2018-06-29] MEDS: PIPERACILLIN/TAZOBACTAM/D5W 3.375 G in PREMIXED 1 EACH IV SCH ×2 (14:16→21:46)
--- NOTE | 2018-06-29 16:36 | NUR ---
BG 69. [place] juice provided. Will recheck BG in 15 min. Will continue to monitor and follow protocol.
--- NOTE | 2018-06-29 16:51 | NUR ---
BG recheck 70. Will continue to monitor closely.
--- NOTE | 2018-06-29 19:30 | NUR ---
rounds made patient in bed orally intubated ac rate of 22 /450 /35%no peep .tolerating vent setting rr 22 saturation 100%.oral care done and suction via ett and via oral .Levophed in progress for bp support to keep sbp >90 m/hg .v/s done q15 minutes .patient eyes close most of the time ,off sedation withdraws to light pain .SR /SB with 1 degree,with bbb,AFIB rate controlled .tube feeding Osmolite in progress tolerating at 40 ml/hr .aspiration precaution observed.f/c to bsd .
--- NOTE | 2018-06-29 19:55 | NUR ---
RECEIVED PT ON CONTINUOUS VENT AC 22 VT 450 FIO2 35%. ETT 7.5 SECURED APPROX. AT 22 CM LIP LINE VIA ANCHOR FAST. SUCTION SMALL AMOUNT THICK WHITE SECRETIONS. REPOSITION ETT ON RIGHT LIP. PT RESTING WELL. NO DISTRESS NOTED AT THIS TIME. VENT CHECKED, ALARMS WORKING WELL AND AUDIBLE. WILL CONTINUE TO MONITOR.
--- NOTE | 2018-06-29 20:45 | NUR ---
patient son came and visited patient . updated with patients status and condition questions answered .
[2018-06-29] MEDS: OXYBUTYNIN CHLORIDE 5 MG TABLET NG SCH (20:59)
--- NOTE | 2018-06-29 21:00 | NUR ---
due medication given and f/s done 124 no coverage given .
--- NOTE | 2018-06-29 21:30 | NUR ---
tuned and reposition patient ,skin care done ,f/c and oral care, suction via mouth and via ETT tube.changed soiled linens and gown . elevated hob .
--- NOTE | 2018-06-29 22:30 | NUR ---
patient noted to be more responsive .open eyes spontaneously,able to moved head from side to side and able to follow voice .moved upper and lower extremities but weak and slow .continue to monitor and frequent reorientation done .
[2018-06-30] VITALS (95 sets, daily range): BP systolic 70–173; BP diastolic 35–77
--- NOTE | 2018-06-30 | NUR ---
sleeping in bed ,.v/s wnl .tolerating vent .
[2018-06-30] MEDS: IV 1/2NS 1000 ML 1,000 ML IV PRN ×2 (00:20→09:15)
[2018-06-30] MEDS: NOREPINEPHRINE BITARTRATE 16 MG in IV DEXTROSE 5% 500 ML IV PRN ×2 (02:59→20:17)
--- NOTE | 2018-06-30 04:00 | NUR ---
am care done ,bath patient skin care done incontinent of stool soft to loose brownish in color moderate in amt . ,zguard applied to affected areas cover with Mepilex .oral /f/c done . turned and reposition .
[2018-06-30 04:56] LABS: BASOPHILS % (AUTO) 0.1 % (0.0-2.0); EOSINOPHILS # (AUTO) 0.2 K/uL (0.0-0.7); EOSINOPHILS % (AUTO) 1.5 % (0.0-7.0); HEMATOCRIT 29.2 % (31.2-41.9); HEMOGLOBIN 9.9 g/dL (10.9-14.3); LYMPHOCYTES # (AUTO) 0.4 K/uL (20.0-40.0); LYMPHOCYTES % (AUTO) 2.9 % (20.5-51.5); MEAN CORPUSCULAR HEMOGLOBIN 31.2 uug (24.7-32.8); MEAN CORPUSCULAR HGB CONC 34 g/dL (32.3-35.6); MEAN CORPUSCULAR VOLUME 92.4 fL (75.5-95.3); MONOCYTES # (AUTO) 0.3 K/uL (2.0-10.0); MONOCYTES % (AUTO) 2.7 % (0.0-11.0); NEUTROPHILS # (AUTO) 11.5 K/uL (1.8-8.9); NEUTROPHILS % (AUTO) 92.8 % (38.5-71.5); PLATELET COUNT (AUTO) 109 K/uL (179-408); RED BLOOD CELL COUNT(AUTO) 3.16 MIL/uL (3.63-4.92); WHITE BLOOD COUNT (AUTO) 12.4 K/uL (3.8-11.8)
[2018-06-30 05:09] LABS: CARBON DIOXIDE 20 mmol/L (21-32); CHLORIDE 106 mmol/L (98-107); CREATININE 0.9 mg/dL (0.6-1.3); GLUCOSE 139 mg/dL (74-106); PHOSPHOROUS 2.7 mg/dL (2.5-4.9); POTASSIUM 3.5 mmol/L (3.5-5.1); UREA NITROGEN, BLOOD 40 mg/dL (7-18)
[2018-06-30] MEDS: PIPERACILLIN/TAZOBACTAM/D5W 3.375 G in PREMIXED 1 EACH IV SCH ×3 (05:50→22:18)
[2018-06-30] MEDS: LEVOTHYROXINE SODIUM 112 MCG TABLET PO SCH (06:07)
[2018-06-30] MEDS: BLOOD SUGAR DIAGNOSTIC 1 EACH STRIP VI SCH ×4 (06:56→22:17)
--- NOTE | 2018-06-30 08:00 | NUR ---
Pt received awake,orally intubated.No s/s of pain,discomfort.SR on monitor.Remains on Levophed gtt at 1 mcg/min.NGT feeding is off.Will continue to monitor.
--- NOTE | 2018-06-30 09:00 | NUR ---
Seen,examined by .
[2018-06-30] MEDS: ENOXAPARIN SODIUM 30 MG/0.3 ML DISP.SYRIN SUBCUT SCH (09:15)
--- NOTE | 2018-06-30 10:30 | NUR ---
Seen,examined by .Pt placed on CPAP.Will continue to monitor.
[2018-06-30 11:18] LABS: ABG BASE EXCESS -3.6 mmol/L; ABG HCO3 18.5 mmol/L; ABG PCO2 24.9 mmHg (35.0-45.0); ABG PH 7.488 (7.350-7.450); ABG PO2 67.2 mmHg (75.0-100.0); ABG SITE LEFT RADIAL; ABG TOTAL HEMOGLOBIN 10.8 G/dL (12.0-16.0); COHb 1.6 % (0.5-1.5); CPAP,BG 0 cmH20; MetHb 0.1 % (0.0-1.5); O2Hb 91.3 % (94.0-97.0); VENT MODE CPAP; VT, ABG 421 mL
--- NOTE | 2018-06-30 12:00 | NUR ---
Pt remains on CPAP.Respiration slightly labored.Called with ABG result.Back on AC on ventilator.
[2018-06-30] MEDS ORDERED: IV NS 1000 ML 1,000 ML IV ONE ×2 (14:30→18:30)
[2018-06-30] MEDS: OSMOLITE 1.2 CAL 1,000 ML LIQUID GT PRN (14:33)
--- NOTE | 2018-06-30 15:20 | NUR ---
Seen,examined by .
--- NOTE | 2018-06-30 19:45 | NUR ---
Pt received on Marcano vent with settings of AC 22, VT 450, FiO2 35%, no changes to vent settings made at this time. Pt is intubated with a 7.5 ETT, secured approximately at 22cm at the lip. Suctioned pt with moderate amount of pale yellowish secretions. Pt is awake, no signs of respiratory distress noted at this time. Vent alarms functioning and audible. Will continue to monitor pt throughout shift.
[2018-06-30] MEDS: OXYBUTYNIN CHLORIDE 5 MG TABLET NG SCH (20:51)
[2018-06-30] MEDS: DEXTROSE 50% 50 ML DISP.SYRIN IV PRN (21:33)
--- NOTE | 2018-06-30 22:16 | NUR ---
5 hrs accucheck 63; rendered orange juice 120 ml with 4 pkts sugar. 2129 hrs accucheck 51; rendered 50% dextrose 50 ml IVP. 2215 hrs accucheck 83.
[2018-07-01] VITALS (44 sets, daily range): BP systolic 101–154; BP diastolic 49–85
[2018-07-01] MEDS: IV 1/2NS 1000 ML 1,000 ML IV PRN (00:40)
[2018-07-01] MEDS: IV NORMAL SALINE 250 ML IV PRN (01:03)
[2018-07-01] MEDS: PIPERACILLIN/TAZOBACTAM/D5W 3.375 G in PREMIXED 1 EACH IV SCH ×3 (05:21→21:23)
[2018-07-01 06:20] LABS: BASOPHILS % (AUTO) 0.1 % (0.0-2.0); EOSINOPHILS # (AUTO) 0.2 K/uL (0.0-0.7); EOSINOPHILS % (AUTO) 1.8 % (0.0-7.0); HEMATOCRIT 29.8 % (31.2-41.9); HEMOGLOBIN 10.1 g/dL (10.9-14.3); LYMPHOCYTES # (AUTO) 0.3 K/uL (20.0-40.0); LYMPHOCYTES % (AUTO) 2.4 % (20.5-51.5); MEAN CORPUSCULAR HEMOGLOBIN 31.2 uug (24.7-32.8); MEAN CORPUSCULAR HGB CONC 34 g/dL (32.3-35.6); MEAN CORPUSCULAR VOLUME 92.4 fL (75.5-95.3); MONOCYTES # (AUTO) 0.5 K/uL (2.0-10.0); MONOCYTES % (AUTO) 3.8 % (0.0-11.0); NEUTROPHILS # (AUTO) 11.9 K/uL (1.8-8.9); NEUTROPHILS % (AUTO) 91.9 % (38.5-71.5); PLATELET COUNT (AUTO) 128 K/uL (179-408); RED BLOOD CELL COUNT(AUTO) 3.23 MIL/uL (3.63-4.92)
[2018-07-01 06:27] LABS: CARBON DIOXIDE 21 mmol/L (21-32); CHLORIDE 104 mmol/L (98-107); CREATININE 0.8 mg/dL (0.6-1.3); GLUCOSE 155 mg/dL (74-106); MAGNESIUM 1.7 mg/dL (1.8-2.4); PHOSPHOROUS 3.2 mg/dL (2.5-4.9); POTASSIUM 3.3 mmol/L (3.5-5.1); UREA NITROGEN, BLOOD 31 mg/dL (7-18)
[2018-07-01] MEDS: LEVOTHYROXINE SODIUM 112 MCG TABLET PO SCH (06:49)
[2018-07-01 06:58] LABS: BAND % (MANUAL) 3 % (0-10); EOSINOPHILS % (MANUAL) 3 % (0-8); LYMPHOCYTES % (MANUAL) 3 % (20-40); MONOCYTES % (MANUAL) 5 % (2-10); NEUTROPHILS % (MANUAL) 86 % (42-75)
[2018-07-01] MEDS: ENOXAPARIN SODIUM 30 MG/0.3 ML DISP.SYRIN SUBCUT SCH (07:50)
[2018-07-01] MEDS ORDERED: IV D5 1/2 NS 1000 ML 1,000 ML IV PRN (08:00)
--- NOTE | 2018-07-01 08:00 | NUR ---
Pt received on continuous mechanical ventilation via 7.5 ETT secured at 22cm lip line. Pt is responsive and is on SOTOMAYOR vent with ordered settings of A/C-22, VT-450, FIO2-35% Pt tolerating vent settings well. SpO2-100% Pt sxn'd and lavaged as needed. ETT secured with AnchorFast device. Good skin integrity noted on area of application. Suctioned for small uma of thick yellowish/white secretions. Vent alarm parameters checked, on and audible. Bag/valve/mask at bedside. Vent plugged into red emergency outlet. Will continue to monitor
[2018-07-01] MEDS: BLOOD SUGAR DIAGNOSTIC 1 EACH STRIP VI SCH ×3 (08:13→17:26)
[2018-07-01] MEDS ORDERED: MAGNESIUM SULFATE/D5W 100 ML IV SCH (08:15)
[2018-07-01] MEDS: POTASSIUM CHLORIDE 50 ML IV SCH ×2 (09:24→10:38)
--- NOTE | 2018-07-01 10:27 | NUR ---
CASKET TRIMMER Roberta Vuong here to see pt. Full report given. New orders received and carried out.
[2018-07-01] MEDS: OSMOLITE 1.2 CAL 1,000 ML LIQUID GT PRN (10:40)
[2018-07-01] MEDS ORDERED: IV NS 1000 ML 1,000 ML IV ONE (10:45)
--- NOTE | 2018-07-01 13:24 | NUR ---
Dr. Purcell here to see pt. Full report given. New orders received.
[2018-07-01] MEDS ORDERED: LORAZEPAM 2 MG/1 ML VIAL IV PRN (13:30)
--- NOTE | 2018-07-01 13:53 | NUR ---
US tech here to see pt for DVT US left upper extremity.
--- NOTE | 2018-07-01 15:30 | NUR ---
Dr. Schultz here to see pt. Full report given. New orders received.
--- NOTE | 2018-07-01 16:35 | NUR ---
Reported US Duplex Left Upper Arm results to BICYCLE ASSEMBLER Roberta Vuong. New orders received. BICYCLE ASSEMBLER stated to discontinue midline.
--- NOTE | 2018-07-01 19:48 | NUR ---
Received pt on Marcano ventilator with settings of AC 22, VT 450, FiO2 35%, no changes to vent settings made, pt tolerating vent setting well at this time. Pt is intubated with a 7.5 ETT, secured with AnchorFast at approximately at 22cm at the lip. Suctioned pt with moderate amount of pale yellowish secretions. Vent plugged in red outlet. Ambu-bag at bedside. Vent alarms functioning and audible. Will continue to monitor pt throughout shift.
[2018-07-01] MEDS: OXYBUTYNIN CHLORIDE 5 MG TABLET NG SCH (21:22)
[2018-07-02] VITALS (22 sets, daily range): BP systolic 109–144; BP diastolic 55–83
[2018-07-02] MEDS: BLOOD SUGAR DIAGNOSTIC 1 EACH STRIP VI SCH ×4 (00:23→18:51)
[2018-07-02 04:55] LABS: BASOPHILS % (AUTO) 0.1 % (0.0-2.0); EOSINOPHILS # (AUTO) 0.1 K/uL (0.0-0.7); EOSINOPHILS % (AUTO) 0.4 % (0.0-7.0); HEMATOCRIT 32.9 % (31.2-41.9); HEMOGLOBIN 11.1 g/dL (10.9-14.3); LYMPHOCYTES # (AUTO) 0.3 K/uL (20.0-40.0); LYMPHOCYTES % (AUTO) 1.4 % (20.5-51.5); MEAN CORPUSCULAR HEMOGLOBIN 31.1 uug (24.7-32.8); MEAN CORPUSCULAR HGB CONC 34 g/dL (32.3-35.6); MEAN CORPUSCULAR VOLUME 91.8 fL (75.5-95.3); MONOCYTES # (AUTO) 0.4 K/uL (2.0-10.0); MONOCYTES % (AUTO) 2.1 % (0.0-11.0); PLATELET COUNT (AUTO) 165 K/uL (179-408); RED BLOOD CELL COUNT(AUTO) 3.59 MIL/uL (3.63-4.92); WHITE BLOOD COUNT (AUTO) 20.8 K/uL (3.8-11.8)
[2018-07-02 05:05] LABS: CARBON DIOXIDE 20 mmol/L (21-32); CHLORIDE 103 mmol/L (98-107); CREATININE 0.9 mg/dL (0.6-1.3); GLUCOSE 155 mg/dL (74-106); MAGNESIUM 1.8 mg/dL (1.8-2.4); PHOSPHOROUS 3.5 mg/dL (2.5-4.9); POTASSIUM 3.6 mmol/L (3.5-5.1); UREA NITROGEN, BLOOD 24 mg/dL (7-18)
[2018-07-02] MEDS: LEVOTHYROXINE SODIUM 112 MCG TABLET PO SCH (06:09)
--- NOTE | 2018-07-02 07:10 | NUR ---
PT REC'D ON CONT MECH VENT AC 22 VT 450 FIO2 35%. ETT 7.5 SECURED APPROX. AT 22 CM LIP LINE WITH ETT MOORE. LAVAGE/SXN'D MOD AMOUNT THICK YELLOW SECRETIONS. PT TOLERATING CURRENT VENT SETTINGS WELL NO DISTRESS NOTED AT THIS TIME. VENT CHECKED, ALARMS AUDIBLE CHECKED AND RESET. WILL CONTINUE TO MONITOR.
[2018-07-02] MEDS: ENOXAPARIN SODIUM 30 MG/0.3 ML DISP.SYRIN SUBCUT SCH (08:05)
[2018-07-02 09:19] LABS: ABG BASE EXCESS -4.7 mmol/L; ABG HCO3 17.4 mmol/L; ABG PH 7.478 (7.350-7.450); ABG PO2 60.8 mmHg (75.0-100.0); ABG SITE RIGHT RADIAL; ABG TOTAL HEMOGLOBIN 11.3 G/dL (12.0-16.0); COHb 1.6 % (0.5-1.5); MetHb 0.3 % (0.0-1.5); O2Hb 89.7 % (94.0-97.0); VENT MODE VENT - A/C 22; VT, ABG 450 mL
[2018-07-02] MEDS: OSMOLITE 1.2 CAL 1,000 ML LIQUID GT PRN ×2 (10:27→19:59)
--- NOTE | 2018-07-02 11:29 | NUR ---
Dr. Purcell here to see pt. Full report given. New orders received.
[2018-07-02] MEDS ORDERED: FUROSEMIDE 40 MG/4 ML VIAL IVP SCH (11:45)
[2018-07-02] MEDS: FUROSEMIDE 20 MG/2 ML VIAL IVP SCH ×2 (11:45→17:36)
--- NOTE | 2018-07-02 11:50 | NUR ---
NEW ORDERS REC'D BY DR BRUCE, DECREASE SET TIDAL VOLUME TO 400ML WITH ABG'S DRAWN IN 1HR.
[2018-07-02 12:56] LABS: ABG BASE EXCESS -3.7 mmol/L; ABG HCO3 18.6 mmol/L; ABG PCO2 26.1 mmHg (35.0-45.0); ABG PH 7.471 (7.350-7.450); ABG PO2 59.5 mmHg (75.0-100.0); ABG SITE RIGHT RADIAL; ABG TOTAL HEMOGLOBIN 11.6 G/dL (12.0-16.0); COHb 1.7 % (0.5-1.5); MetHb 0.3 % (0.0-1.5); O2Hb 88.8 % (94.0-97.0); VENT MODE VENT - A/C22; VT, ABG 400 mL
--- NOTE | 2018-07-02 13:30 | NUR ---
SPLITTER HEAD Roberta Vuong here to see pt. Full report given. No new orders received.
--- NOTE | 2018-07-02 17:45 | NUR ---
BS noted to be 46. IV D50 given per protocol and at 1815 BS rechecked and noted to be 68. Rechecked a 2nd time and BS noted to be 22. OJ given via NG-tube and lab called for stat blood glucose. Awaiting result.
[2018-07-02] MEDS: DEXTROSE 50% 50 ML DISP.SYRIN IV PRN (17:48)
--- NOTE | 2018-07-02 20:00 | NUR ---
RECEIVED PT OPENS HER EYES TO VERBAL STIMULI. ORALLY INTUBATED TO VENT W/ SETTINGS OF AC-22, TV-400, FIO2-35%, W/ O2 SAT OF 95%. SUCTIONED ORALLY & VIA ETT W/ SCANTY TANNISH THIN MUCOUS. NGT ON L NARE, CHECKED PLACEMENT & CHECKED RESIDUAL NONE NOTED. ON TUBE FDG OF OSMOLITE 1.2 @ 40 CC/HR. TLC ON RIJ , ALL PORTS INTACT & PATENT. NS @ 5CC/HR FOR IVPB. REPOSITIONED ON HER SIDE W/ HOB ELEVATED.
[2018-07-02] MEDS: OXYBUTYNIN CHLORIDE 5 MG TABLET NG SCH (21:00)
--- NOTE | 2018-07-02 22:00 | NUR ---
HS CARE DONE. ORAL CARE DONE. REPOSITIONED ON HER OPPOSITE SIDE W/ HOB ELEVATED.
[2018-07-03] VITALS (23 sets, daily range): BP systolic 99–129; BP diastolic 45–71
--- NOTE | 2018-07-03 | NUR ---
AFEBRILE. V/S STABLE SUCTIONED & REPOSITIONED W/ HOB ELEVATED.
[2018-07-03] MEDS: BLOOD SUGAR DIAGNOSTIC 1 EACH STRIP VI SCH ×5 (00:24→23:55)
--- NOTE | 2018-07-03 01:34 | NUR ---
PT ON CONT SOTOMAYOR VENT WITH 7.5 ET/TUBE IN PLACE AND 22CM LIP LINE, VENT SETTINGS, A/C 22, VT 400ML, 35%, PT DOES ASSIST AT TIMES ,WITH GOOD COUGH EFFORT, SUCTIONED LIGHT PALE YELL TINGE AND PINKISH TINGE SECRETIONS , ORAL CARE DONE, ANCHOR FAST MOVED SEVERAL TIMES , CP 22, NO VENT CHANGES MADE DURING SHIFT, ALL VENT ALARMS GOOD, CHANGE HME, WEANING @ 0800 , AMBU BAG AT BEDSIDE.Markie MARIE RCP Addendum: 07/03/18 at 0138 by ALLAN MARIE RT Amended: Links added.
--- NOTE | 2018-07-03 04:13 | NUR ---
AM CARE DONE. ORAL CARE DONE. HAD LARGE SOFT STOOL BROWNISH IN COLOR.. REPOSITIONED ON HER BACK FOR CXR.
[2018-07-03 04:49] LABS: BASOPHILS % (AUTO) 0.1 % (0.0-2.0); EOSINOPHILS # (AUTO) 0.2 K/uL (0.0-0.7); EOSINOPHILS % (AUTO) 1.3 % (0.0-7.0); HEMATOCRIT 30.2 % (31.2-41.9); HEMOGLOBIN 10.2 g/dL (10.9-14.3); LYMPHOCYTES # (AUTO) 0.3 K/uL (20.0-40.0); MEAN CORPUSCULAR HEMOGLOBIN 31.2 uug (24.7-32.8); MEAN CORPUSCULAR HGB CONC 34 g/dL (32.3-35.6); MEAN CORPUSCULAR VOLUME 91.8 fL (75.5-95.3); MONOCYTES # (AUTO) 0.5 K/uL (2.0-10.0); MONOCYTES % (AUTO) 2.9 % (0.0-11.0); NEUTROPHILS # (AUTO) 15.4 K/uL (1.8-8.9); NEUTROPHILS % (AUTO) 93.7 % (38.5-71.5); PLATELET COUNT (AUTO) 186 K/uL (179-408); RED BLOOD CELL COUNT(AUTO) 3.29 MIL/uL (3.63-4.92); WHITE BLOOD COUNT (AUTO) 16.4 K/uL (3.8-11.8)
[2018-07-03 05:00] LABS: CARBON DIOXIDE 23 mmol/L (21-32); CHLORIDE 104 mmol/L (98-107); CREATININE 0.8 mg/dL (0.6-1.3); GLUCOSE 139 mg/dL (74-106); MAGNESIUM 1.6 mg/dL (1.8-2.4); PHOSPHOROUS 4.3 mg/dL (2.5-4.9); POTASSIUM 3.5 mmol/L (3.5-5.1); UREA NITROGEN, BLOOD 23 mg/dL (7-18)
[2018-07-03] MEDS: IV NORMAL SALINE 250 ML IV PRN (05:27)
--- NOTE | 2018-07-03 06:00 | NUR ---
PT HAD ANOTHER STOOL, CLEANED & REPOSITIONED W/ HOB ELEVATED. OFF TUBE FDG TO RESUME @ 1000.
[2018-07-03] MEDS: LEVOTHYROXINE SODIUM 112 MCG TABLET PO SCH (06:31)
--- NOTE | 2018-07-03 07:50 | NUR ---
RECEIVED PT ON CONTINUOUS VENT AC 22 VT 400 FIO2 35%. PLACED PT ON SIMV 4 VT 400 PEEP 5 PS 15 FIO2 35% PER WEANING ORDER. ET TUBE 7.5 SECURED VIA ANCHOR FAST AND REPOSITIONED TO RIGHT LIP. SUCTION PRN.VENT CHECKED, ALARMS WORKING WELL AND AUDIBLE. NO DISTRESS NOTED AT THIS TIME. ABG TO FOLLOW IN 1 HOUR. WILL CONTINUE TO MONITOR.
--- NOTE | 2018-07-03 08:00 | NUR ---
Patient does not do eye opening when spoken to, withdrawls to tactile stimulation. SR on monitor without ectopy. On vent to oral ETT with settings FI02 35%, will go to SIMV per DO. NGT feeding off, will resume at 1000. FC to gravity with shiela color urine, urine output QS. Patient has generalized edema. Upper and lower extremities circulation - fingers and toes cool to touch. Dusky, and cyanotic lower extremities right toes dark, and cold to touch. Enoc Cook RN
[2018-07-03] MEDS: ENOXAPARIN SODIUM 30 MG/0.3 ML DISP.SYRIN SUBCUT SCH (08:10)
[2018-07-03] MEDS: Z GUARD REMEDY PASTE 57 GM TUBE TOP PRN (08:11)
[2018-07-03] MEDS: MAGNESIUM SULFATE/D5W 100 ML IV SCH ×3 (08:30→11:00)
[2018-07-03 09:04] LABS: ABG BASE EXCESS -2.6 mmol/L; ABG HCO3 20.4 mmol/L; ABG PCO2 29.1 mmHg (35.0-45.0); ABG PH 7.463 (7.350-7.450); ABG PO2 68.3 mmHg (75.0-100.0); ABG SITE RIGHT RADIAL; ABG TOTAL HEMOGLOBIN 10.4 G/dL (12.0-16.0); COHb 1.8 % (0.5-1.5); MetHb 0.2 % (0.0-1.5); O2Hb 90.6 % (94.0-97.0); VENT MODE VENT - SIMV; VT, ABG 400 mL
--- NOTE | 2018-07-03 10:15 | NUR ---
Dr Reece visits patient updated on present condition, respiratory status, labs, and orders written. Enoc Cook RN
[2018-07-03] MEDS ORDERED: POTASSIUM CHLORIDE 20 MEQ POWDER PACKET GT ONE (10:30)
--- NOTE | 2018-07-03 11:00 | NUR ---
Talked to David( son of patient), updated on patients condition, case management involved, scheduled to talk to on-call doctor regarding options and decisions regarding patients condition around 1000
[2018-07-03] MEDS: INSULIN REGULAR, HUMAN 300 UNIT/3 ML VIAL SQ PRN ×2 (11:27→17:28)
--- NOTE | 2018-07-03 11:29 | NUR ---
BS 107, and no insulin necessary per sliding scale per do. NGT feeding on Osmolite at 40 ml per hour, and tolerating well. No residual. Enoc Cook RN
[2018-07-03] MEDS: PROTEIN SUPPLEMENT (PROSTAT) 30 ML LIQUID GT SCH ×2 (14:59→17:16)
--- NOTE | 2018-07-03 16:00 | NUR ---
Dr Schultz visits patient, updated on present condition, HR, and that patient HR went to 31-symptomatic in mid afternoon, and no orders written. Enoc Cook RN
--- NOTE | 2018-07-03 17:31 | NUR ---
BS 107, and no insulin necessary per sliding scale per do. Patient given complete bed bath, with linen change. Enoc Cook RN
--- NOTE | 2018-07-03 19:30 | NUR ---
Report received. Patient admitted 06/24/18 DX: UTI, Afib with RVR and AMS. Orally intubated 06/26 with 7.5 ETT, 22 cm lip line, and to mechanical ventilator settings as follows: TV 400ml, FIO2=35%, PEEP=5 cm, PSV=15, SIMV=4. Sat 98%. Doesn't open eyes to name or painful stimuli, but grimaces. Assessment done; see flow sheet for complete data. Addendum: 07/03/18 at 2047 by STEPHON SERRANO RN Amended: Links added. Addendum: 07/03/18 at 2053 by STEPHON SERRANO RN Amended: Links added.
--- NOTE | 2018-07-03 19:35 | NUR ---
RECEIVED PT ORALLY INTUBATED WITH A 7.5 ETT, APPROXIMATELY 22CM AT THE LIP. ETT IS SECURED VIA ANCHOR FAST. PT IS ON CONTINUOUS MECHANICAL VENTILATION WITH VENT SETTINGS OF SIMV 4, VT 400, PS 15, PEEP +5, FIO2 35%. PT APPEARS TO BE TOLERATING VENTILATOR AT THIS TIME. ORAL CARE DONE. HME CHANGED. SUCTIONED MODERATE AMOUNT OF THICK, YELLOWISH SECRETIONS; MINIMAL PINK-TINGED SECRETIONS. VENT ALARM PARAMETERS CHECKED, ARE ON AND AUDIBLE. AMBU BAG IS AT BEDSIDE. VENT IS PLUGGED INTO RED EMERGENCY OUTLET.
--- NOTE | 2018-07-03 20:00 | NUR ---
Suctioned and repositioned. With fairly good cough reflex. Still doesn't open eyes. Had a small brown BM. Skin care provided. HOB elevated above 30 degrees at all times. Toes of L foot purple/black; all toes of R foot reddish. Pulses by doppler. With marked anasarca. Addendum: 07/03/18 at 2053 by STEPHON SERRANO RN Amended: Links added.
--- NOTE | 2018-07-03 20:40 | NUR ---
Family members at bedside. Plan of care discussed with son.
[2018-07-03] MEDS: OXYBUTYNIN CHLORIDE 5 MG TABLET NG SCH (21:01)
[2018-07-03] MEDS: Z GUARD REMEDY PASTE 57 GM TUBE TOP SCH (21:18)
--- NOTE | 2018-07-03 21:30 | NUR ---
Opens eyes randomly. Able to follow simple commands such as squeeze RN's hands and blink eyes. Heel Builder Machine very weak.
--- NOTE | 2018-07-03 23:40 | NUR ---
Fingerstick done =49; blood sample taken from L finger. Repeated on R finger, result=68. Patient asymptomatic; opens eyes to name. Protocol followed; OJ given via patent NGT.
[2018-07-04] VITALS (15 sets, daily range): BP systolic 91–135; BP diastolic 48–72
--- NOTE | 2018-07-04 01:03 | NUR ---
Accucheck done=29; again blood sample was taken from L hand. Test repeated from R [id number]=[id number]. Fingertips of both hands cyanotic more on the L. Patient on continuous NGT feedings.
[2018-07-04] MEDS: Z GUARD REMEDY PASTE 57 GM TUBE TOP PRN (04:48)
[2018-07-04] MEDS: IV NORMAL SALINE 250 ML IV PRN (04:48)
[2018-07-04 04:59] LABS: BASOPHILS % (AUTO) 0.2 % (0.0-2.0); EOSINOPHILS # (AUTO) 0.3 K/uL (0.0-0.7); EOSINOPHILS % (AUTO) 2.5 % (0.0-7.0); HEMATOCRIT 28.4 % (31.2-41.9); HEMOGLOBIN 9.6 g/dL (10.9-14.3); LYMPHOCYTES # (AUTO) 0.3 K/uL (20.0-40.0); LYMPHOCYTES % (AUTO) 3.1 % (20.5-51.5); MEAN CORPUSCULAR HEMOGLOBIN 31.5 uug (24.7-32.8); MEAN CORPUSCULAR HGB CONC 34 g/dL (32.3-35.6); MEAN CORPUSCULAR VOLUME 93.4 fL (75.5-95.3); MONOCYTES # (AUTO) 0.4 K/uL (2.0-10.0); MONOCYTES % (AUTO) 3.8 % (0.0-11.0); NEUTROPHILS # (AUTO) 9.9 K/uL (1.8-8.9); NEUTROPHILS % (AUTO) 90.4 % (38.5-71.5); PLATELET COUNT (AUTO) 195 K/uL (179-408); RED BLOOD CELL COUNT(AUTO) 3.04 MIL/uL (3.63-4.92)
[2018-07-04 05:00] LABS: CARBON DIOXIDE 24 mmol/L (21-32); CHLORIDE 105 mmol/L (98-107); CREATININE 0.7 mg/dL (0.6-1.3); GLUCOSE 136 mg/dL (74-106); MAGNESIUM 2.1 mg/dL (1.8-2.4); PHOSPHOROUS 4.3 mg/dL (2.5-4.9); POTASSIUM 4.1 mmol/L (3.5-5.1); UREA NITROGEN, BLOOD 27 mg/dL (7-18)
[2018-07-04] MEDS: BLOOD SUGAR DIAGNOSTIC 1 EACH STRIP VI SCH (05:22)
[2018-07-04 05:56] LABS: EOSINOPHILS % (MANUAL) 3 % (0-8); LYMPHOCYTES % (MANUAL) 2 % (20-40); METAMYELOCYTES % 1 % (0-1); MONOCYTES % (MANUAL) 1 % (2-10); NEUTROPHILS % (MANUAL) 92 % (42-75)
[2018-07-04] MEDS: LEVOTHYROXINE SODIUM 112 MCG TABLET PO SCH (06:22)
--- NOTE | 2018-07-04 06:33 | NUR ---
O2 saturations maintaining above 94% on current vent settings. With episodes of 2nd degree HB Mobitz 1, rate in the 30's. Patient asymptomatic. BPs stable. tolerating NGT feedings well; off x 4H ([id number]). No neuro changes.
--- NOTE | 2018-07-04 07:34 | NUR ---
RECEIVED A 87 Y/O FEMALE PT, ASLEEP/ NOT ALERT. ORALLY INTUBATED WITH A 7.5 ETT, APPROXIMATELY 22CM AT THE LIP. ETT PT IS ON CONTINUOUS MECHANICAL VENTILATION WITH VENT SETTINGS OF SIMV 4, VT 400, PS 15, PEEP +5, FIO2 35%. PT APPEARS TO BE TOLERATING VENTILATOR AT THIS TIME. PT HAS RT I.J ON TKO, URINATING VIA FC.VENT ALARM PARAMETERS CHECKED, ARE ON AND AUDIBLE.
--- NOTE | 2018-07-04 07:35 | NUR ---
Pt received in bed, laying semi-Cruz's, unable to communicate at this time.. Orally intubated, ETT 7.5, approximately 22 at the lip, in place and secure with Scammon Fast.. Continuous mechanical ventilation with vent: Marcano, settings: SIMV 4, Vt 400, PS 15, PEEP +5, FiO2 35%, tolerating well at this time, no changes made to vent settings.. Vent alarms on / audible and functioning normally at this time, will continue to monitor..
--- NOTE | 2018-07-04 09:00 | NUR ---
PATIENT PUT ON CPAP MODE WITH FIO2 35%, PSV 6. TOLERATING WELL, WILL CONTINUE TO MONITOR FOLLOWED BE AN BAGS @1000
[2018-07-04] MEDS: ENOXAPARIN SODIUM 30 MG/0.3 ML DISP.SYRIN SUBCUT SCH (09:22)
[2018-07-04] MEDS: PROTEIN SUPPLEMENT (PROSTAT) 30 ML LIQUID GT SCH (09:23)
[2018-07-04] MEDS: Z GUARD REMEDY PASTE 57 GM TUBE TOP SCH (09:24)
--- NOTE | 2018-07-04 10:00 | NUR ---
ABGS TAKEN, SEEN BY DR LOPEZ AND MICHAELA,WALKER FAMILY AT BED SIDE,CONFERENCE MADE REGARDING PATIENTS CONDITION AFTER ADDRESSING ALL FAMILY'S CONCERNS AND QUESTIONS, FAMILY DECIDED TO EXTUBATE AND CHANGE PT TO COMFORT MEASURES. PT WILL BE PUT ON IV MORPHINE DRIP.
[2018-07-04 10:10] LABS: ABG BASE EXCESS -2.1 mmol/L; ABG HCO3 21.5 mmol/L; ABG PCO2 32.5 mmHg (35.0-45.0); ABG PH 7.438 (7.350-7.450); ABG PO2 62.1 mmHg (75.0-100.0); ABG SITE RIGHT RADIAL; COHb 1.6 % (0.5-1.5); MetHb 0.1 % (0.0-1.5); O2Hb 89.9 % (94.0-97.0); VENT MODE VENT - CPAP - PS 6
[2018-07-04] MEDS ORDERED: FUROSEMIDE 40 MG/4 ML VIAL IV ONE (10:30)
[2018-07-04] MEDS ORDERED: MORPHINE SULFATE 2 MG/1 ML DISP.SYRIN IV PRN ×2 (10:30→12:30)
[2018-07-04] MEDS ORDERED: DC PROPOFOL ONCE EXTUBATED XX PRN (10:40)
[2018-07-04] MEDS ORDERED: LORAZEPAM 2 MG/1 ML VIAL IV PRN (11:00)
--- NOTE | 2018-07-04 11:00 | NUR ---
Pt extubated as ordered without incident, family at bedside..
--- NOTE | 2018-07-04 11:34 | NUR ---
PATIENT EXTUBATED AND PUT ON 2LPM NC , IV MORPHINE AND ATIVAN GIVEN. FAMILY AT BEDSIDE,ALL QUESTIONS ASKED.
[2018-07-04] MEDS: MORPHINE SULFATE 4 MG/1 ML DISP.SYRIN IV PRN ×3 (12:42→20:38)
[2018-07-04] MEDS ORDERED: MORPHINE SULFATE 4 MG/1 ML DISP.SYRIN IV PRN (12:45)
[2018-07-04] MEDS: LORAZEPAM 2 MG/1 ML VIAL IV PRN ×3 (13:11→20:38)
--- NOTE | 2018-07-04 19:30 | NUR ---
Report received. Patient was extubated today and is DNR/DNI with comfort measures only. Son and bedside. Discussed with him medications and plan of care. Verbalized understanding. Patient obtunded, respirations regular, non labored.
--- NOTE | 2018-07-04 20:35 | NUR ---
PM care rendered. Patient with slight grimacing to care. Ezio Hernandez remains at bedside. Medicated with Ativan and Morphine.
--- NOTE | 2018-07-04 21:25 | NUR ---
Referral to [facility] done. Spoke with Marilee; BEATRIS [phone]. Rail Track Maintainer Arianne diaz.
--- NOTE | 2018-07-04 22:00 | NUR ---
With periods of apnea. No withdrawal to painful stimuli. Ezio Hernandez remains at bedside. Supportive measures offered.
--- NOTE | 2018-07-04 22:36 | NUR ---
Patient apneic x 5 minutes, pupils fixed and dilated. No audible heart tones and breath sounds, no palpable pulses and corneal reflexes. Pronounced at 2236. Son at bedside during patient's expiration. Supportive care rendered.
--- NOTE | 2018-07-04 22:40 | NUR ---
earth science faculty member Cindy aware of patient's expiration. [facility] notified; spoke to [place]. Nursing preload supervisor informed. Message re: patient's expiration left to Brendan Garner second baller for [employer] by earth science faculty member Cindy.
--- NOTE | 2018-07-04 23:00 | NUR ---
Post mortem care done. Now awaiting for [employer] milk pickup driver.
--- NOTE | 2018-07-04 23:15 | NUR ---
PICC line and Gilmore catheter dc'd without problems.
--- NOTE | 2018-07-05 00:25 | NUR ---
M[employer]uary shrimp picker here. Proper information given; decedent worksheet completed. Billing Machine Operator aware.
== END 2018-07-05 00:30 | disposition expired | DRG 870 ==
LOC: ER 12:05 → CCU 14:18 → MEDSURG3 07-04 12:00
PROVIDERS: ADMIT Nurse Practitioner Acute Care; ATTEND Nurse Practitioner Acute Care
PROC: 05HY33Z Insertion of Infusion Device into Upper Vein, Percutaneous Approach (ICD-10-PCS; 2018-06-24)
PROC: 0DH67UZ Insertion of Feeding Device into Stomach, Via Natural or Artificial Opening (ICD-10-PCS; 2018-06-25)
PROC: 5A1955Z Respiratory Ventilation, Greater than 96 Consecutive Hours (ICD-10-PCS; principal; 2018-06-26)
PROC: 0BH17EZ Insertion of Endotracheal Airway into Trachea, Via Natural or Artificial Opening (ICD-10-PCS; 2018-06-26)
PROC: 05HM33Z Insertion of Infusion Device into Right Internal Jugular Vein, Percutaneous Approach (ICD-10-PCS; 2018-06-26)
PROC: B543ZZA Ultrasonography of Right Jugular Veins, Guidance (ICD-10-PCS; 2018-06-26)
DX: A41.9 Sepsis, unspecified organism (principal); R65.21 Severe sepsis with septic shock; G93.41 Metabolic encephalopathy; J96.01 Acute respiratory failure with hypoxia; J15.9 Unspecified bacterial pneumonia; I21.A1 Myocardial infarction type 2; J96.02 Acute respiratory failure with hypercapnia; I50.31 Acute diastolic (congestive) heart failure; N17.9 Acute kidney failure, unspecified; N39.0 Urinary tract infection, site not specified; E87.2 Acidosis; E87.0 Hyperosmolality and hypernatremia; I13.0 Hypertensive heart and chronic kidney disease with heart failure and stage 1 through stage 4 chronic kidney disease, or unspecified chronic kidney disease; J98.11 Atelectasis; D68.9 Coagulation defect, unspecified; Z51.5 Encounter for palliative care; B96.20 Unspecified Escherichia coli [E. coli] as the cause of diseases classified elsewhere; B95.2 Enterococcus as the cause of diseases classified elsewhere; I08.3 Combined rheumatic disorders of mitral, aortic and tricuspid valves; G30.9 Alzheimer's disease, unspecified; F02.80 Dementia in other diseases classified elsewhere, unspecified severity, without behavioral disturbance, psychotic disturbance, mood disturbance, and anxiety; N31.9 Neuromuscular dysfunction of bladder, unspecified; Z85.3 Personal history of malignant neoplasm of breast; Z87.891 Personal history of nicotine dependence; N18.9 Chronic kidney disease, unspecified; E11.22 Type 2 diabetes mellitus with diabetic chronic kidney disease; E11.65 Type 2 diabetes mellitus with hyperglycemia; E03.9 Hypothyroidism, unspecified; R27.0 Ataxia, unspecified; I44.1 Atrioventricular block, second degree; I48.0 Paroxysmal atrial fibrillation; I48.2 Chronic atrial fibrillation; E86.1 Hypovolemia; D63.8 Anemia in other chronic diseases classified elsewhere; D69.6 Thrombocytopenia, unspecified; M32.9 Systemic lupus erythematosus, unspecified; M85.80 Other specified disorders of bone density and structure, unspecified site; Z79.890 Hormone replacement therapy; Z87.440 Personal history of urinary (tract) infections; Z88.2 Allergy status to sulfonamides; E11.649 Type 2 diabetes mellitus with hypoglycemia without coma
CPT/HCPCS: 36415; 36569; 36600; 70030-TC; 71045; 76770; 83605; 83735; 84100; 84300; 85025; 85730; 86038; 87040; 87070; 87077; 87086; 87400; 93005; 93307; 94002; 94003; A4663; C1751; G0378; J0282; J0610; J1160; J1650; J1815; J1940; J2060; J2185; J2270; J2543; J3370; J3475; J3480; J3490; J7030; J7050; J7060